=== PATIENT | male | born 1970 | race Caucasian/White ===

== ENCOUNTER 2025-02-07 03:28 | Inpatient (IN) | payer OTHER ==
[~2025-02-07] VITALS: Ht 177.8 cm; Wt 68.0 kg
--- NOTE | 2025-02-07 03:41 | ED.PDOC ---
History of Present Illness HPI Comments 54 year old male presents to the ED via EMS with a chief complaint of back pain onset 2 days. Patient has a PMHx of colon cancer, rectal cancer, has colostomy bag in place. Per EMS, patient has a low back fracture, was discharged from [facility] recently, pain has worsen. He currently rates back pain 10/10. Denies chest pain, shortness of breath, fever, chills, nausea, vomiting, diarrhea, headache, dizziness. No other symptoms or modifying factors present at this time. Time Seen by MD: 03:35 Reviewed Notes: Medications, Allergies Allergies: Coded Allergies: NO KNOWN ALLERGIES (Unverified , 02/07/25) Information Source: Patient, Emergency Med Personnel Mode of Arrival: EMS Severity: Moderate Timing: Days Duration: Since onset Prehospital treatment: None Past Medical History PAST MEDICAL HISTORY: Cancer Surgical History: Unknown Family History Family History: Reviewed,noncontributory to illness, No family hx of Cancer, No family hx of DM, No family hx of Heart sarah, No family hx of HTN, No family hx ofKidney sarah, No family hx of Liver sarah, No family hx of Lung sarah, No family hx of Stroke Social History Smoker: Non-Smoker Alcohol: Denies ETOH Use Drugs: Denies Drug Use Lives In: Home Constitutional: denies: chills, diaphoresis, fatigue, fever, malaise, sweats, weakness, others EENTM: denies: blurred vision, double vision, ear bleeding, ear discharge, ear drainage, ear pain, ear ringing, eye pain, eye redness, hearing loss, mouth pain, mouth swelling, nasal discharge, nose bleeding, nose congestion, nose pain, photophobia, tearing, throat pain, throat swelling, voice changes, others Respiratory: denies: cough, hemoptysis, orthopnea, SOB at rest, shortness of breath, SOB with excertion, stridor, wheezing, others Cardiovascular: denies: chest pain, dizzy spells, diaphoresis, Dyspnea on exertion, edema, irregular heart beat, left arm pain, lightheadedness, palpitations, PND, syncope, others Gastrointestinal: denies: abdomen distended, abdominal pain, blood streaked bowels, constipated, diarrhea, dysphagia, difficulty swallowing, hematemesis, melena, nausea, poor appetite, poor fluid intake, rectal bleeding, rectal pain, vomiting, others Genitourinary: denies: burning, dysuria, flank pain, frequency, hematuria, incontinence, penile discharge, penile sore, pain, testicle pain, testicle swelling, urgency, others Neurological: denies: dizziness, fainting, headache, left sided numbness, left sided weakness, numbness, paresthesia, pre-existing deficit, right sided numbness, right sided weakness, seizure, speech problems, tingling, tremors, weakness, others Musculoskeletal: reports: back pain; denies: gout, joint pain, joint swelling, muscle pain, muscle stiffness, neck pain, others Integumetry: denies: bruises, change in color, change in hair/nails, dryness, laceration, lesions, lumps, rash, wounds, others Allergic/Immunocompromised: denies: Difficulty Healing, Frequent Infections, Hives, Itching, others Hematologic/Lymphatic: denies: anemia, blood clots, easy bleeding, easy bruising, swollen glands, others Endocrine: denies: excessive hunger, excessive sweating, excessive thirst, excessive urination, flushing, intolerance to cold, intolerance to heat, unexplained weight gain, unexplained weight loss, others Psychiatric: denies: anxiety, bipolar disorder, depression, hopeless, panic disorder, schizophrenia, sleepless, suicidal, others All Other Systems: Reviewed and Negative Physical Exam General Appearance: Normal HEENT: Normal ENT Inspection, Pharynx Normal, TMs Normal Neck: Full Range of Motion, Non-Tender, Normal, Normal Inspection Respiratory: Chest Non-Tender, Lungs Clear, No Accessory Muscle Use, No Respiratory Distress, Normal Breath Sounds Cardiovascular: No Edema, No JVD, No Murmur, No Gallop, Normal Peripheral Pulses, Regular Rate/Rhythm Breast Exam: Deferred Gastrointestinal: No Organomegaly, Non Tender, No Pulsatile Mass, Normal Bowel Sounds, Soft Genitalia: Deferred Pelvic: Deferred Rectal: Deferred Extremities: No calf tenderness, Normal capillary refill, Normal inspection, Normal range of motion, Non-tender, No pedal edema Musculoskeletal : Apperance: Normal Neurologic: Alert, 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 Was a procedure done?: No Differential Dx Considerations may include: Differential diagnosis includes but not limited to dehydration, sepsis, peritonitis, bowel obstruction, bony metastases and others X-Ray, Labs, Meds, VS Vital Signs Date Time Temp Pulse Resp B/P (MAP) Pulse Ox O2 Delivery O2 Flow Rate FiO2 02/07/25 05:19 79 16 96 Room Air* 0 21 21 02/07/25 04:14 79 19 162/78 02/07/25 04:00 79 19 162/78 (106) 95 02/07/25 03:30 98.9 81 16 172/82 99 98.9 Lab Test 02/07/25 03:56 Range/Units White Blood Count 14.7 H 4.4-10.8 10^3/uL Red Blood Count 4.14 L 4.5-5.90 10^6/uL Hemoglobin 11.0 L 13.5-17.5 g/dL Hematocrit 33.6 L 41.0-53.0 % Mean Corpuscular Volume 81.2 80.0-100.0 fL Mean Corpuscular Hemoglobin 26.7 L 28.0-32.0 pg Mean Corpuscular Hemoglobin Concent 32.9 32.0-36.0 g/dL Red Cell Distribution Width 17.0 H 11.8-14.3 % Platelet Count 385 140-450 10^3/uL Mean Platelet Volume 6.1 L 6.9-10.8 fL Neutrophils (%) (Auto) 81.5 H 37.0-80.0 % Lymphocytes (%) (Auto) 11.5 10.0-50.0 % Monocytes (%) (Auto) 5.0 0.0-12.0 % Eosinophils (%) (Auto) 1.4 0.0-7.0 % Basophils (%) (Auto) 0.6 0.0-2.0 % Neutrophils # (Auto) 12.0 H 1.6-8.6 10 ^3/uL Lymphocytes # (Auto) 1.7 0.4-5.4 10 ^3/uL Monocytes # (Auto) 0.7 0-1.3 10 ^3/uL Eosinophils # (Auto) 0.2 0-0.8 10 ^3/uL Basophils # (Auto) 0.1 0-0.2 10 ^3/uL Nucleated Red Blood Cells 0.0 % Prothrombin Time 11.5 9.3-11.8 sec Prothrombin Time INR 1.09 0.9-1.15 Activated Partial Thromboplast Time 28.5 24.5-34.5 SEC Sodium Level 135 L 136-145 mmol/L Potassium Level 2.9 L 3.5-5.1 mmol/L Chloride Level 98 98-107 mmol/L Carbon Dioxide Level 25 20-31 mmol/L Anion Gap 12 5-15 Blood Urea Nitrogen 16 9-23 mg/dL Creatinine 0.64 L 0.700-1.30 mg/dL Glomerular Filtration Rate Calc 111 >90 mL/min BUN/Creatinine Ratio 25.0 H 10.0-20.0 Serum Glucose 106 74-106 mg/dL Calcium Level 9.6 8.7-10.4 mg/dL Total Bilirubin 0.7 0.2-1.0 mg/dL Aspartate Amino Transferase (AST) 84 H 13-40 U/L Alanine Aminotransferase (ALT) 41 H 7-40 U/L Alkaline Phosphatase 733 H 46-116 U/L Total Protein 6.5 5.7-8.2 g/dL Albumin 3.9 3.2-4.8 g/dL Lipase 66 H 12-53 U/L Current Medications Medications (Trade) Dose Ordered Sig/Ramírez Route Start Time Stop Time Status Last Admin Ondansetron HCl (Zofran) 4 mg ONCE ONCE IV 02/07/25 03:45 02/07/25 03:46 DC 02/07/25 04:13 Hydromorphone HCl (Dilaudid Injection) 1 mg ONCE ONCE IV 02/07/25 03:45 02/07/25 03:46 DC 02/07/25 04:14 Sodium Chloride 1,000 ml @ 1,000 mls/hr Q1H ONCE IVB 02/07/25 03:45 02/07/25 04:44 DC 02/07/25 04:14 Time of 1ST Reevaluation: 04:05 Reevaluation 1ST: Unchanged Patient Education/Counseling: Diagnosis, Treatment, Prognosis Family Education/Counseling: No Family Present SEPSIS Sepsis Screen Physician Orders Urinalysis (02/07/25 03:38) Ct Ab Pel With Iv Con Only (02/07/25 03:38) Chest Xray 1 View (02/07/25 03:38) Potassium Er Tablet (Klor-Con Tablet) (02/07/25 06:15) Vital Signs Date Time Temp Pulse Resp B/P (MAP) Pulse Ox O2 Delivery O2 Flow Rate FiO2 02/07/25 05:19 79 16 96 Room Air* 0 21 21 02/07/25 04:14 79 19 162/78 02/07/25 04:00 79 19 162/78 (106) 95 02/07/25 03:30 98.9 81 16 172/82 99 98.9 Laboratory Tests Test 02/07/25 03:56 White Blood Count 14.7 10^3/uL (4.4-10.8) H Medications Medications Dose Ordered Sig/Ramírez Route Start Time Stop Time Status Last Admin Dose Admin Hydromorphone HCl 1 mg ONCE ONCE IV 02/07/25 03:45 02/07/25 03:46 DC 02/07/25 04:14 Ondansetron HCl 4 mg ONCE ONCE IV 02/07/25 03:45 02/07/25 03:46 DC 02/07/25 04:13 Sodium Chloride 1,000 ml @ 1,000 mls/hr Q1H ONCE IVB 02/07/25 03:45 02/07/25 04:44 DC 02/07/25 04:14 Departure 1 Departure Time of Disposition: 06:05 Impression: Primary Impression: Colon cancer metastasized to liver Additional Impression: Intractable back pain Disposition: ADMITTED INPATIENT Condition: Guarded Discharged With: Self Comments Patient with colon cancer with metastases now presents with severe back pain. Lab results reviewed. White blood cell count elevated at 14.7. Mild anemia with a H&H of 11 and 33. Hypokalemia 2.9. Patient was given IV fluids and IV pain medication. Patient was given potassium replacement orally. CT of the abdomen and pelvis results are pending. Patient will need to be admitted for pain control and supportive care and further workup of his colon cancer Critical Care Note Critical Care Time?: No Stability Stability form required: No I personally scribed for MERRY LA MD ([email or web address]) on 02/07/25 at 03:41. Electronically submitted by Jodi Rudolph ([email or web address]). MERRY LA MD Feb 07, 2025 03:41
[2025-02-07 04:11] LABS: Hematocrit 33.6 % (41.0-53.0); Hemoglobin 11.0 g/dL (13.5-17.5); Mean Corpuscular Hemoglobin 26.7 pg (28.0-32.0); Mean Corpuscular Volume 81.2 fL (80.0-100.0); Nucleated Red Blood Cells % 0.0 %
[2025-02-07] MEDS: ONDANSETRON HCL 4 MG/2 ML VIAL IV ONE ×2 (04:13→09:30)
[2025-02-07] MEDS: SODIUM CHLORIDE 0.9% 1,000 ML IVB ONE (04:14)
[2025-02-07] MEDS: HYDROmorphone HCL 2 MG/ML VL/or syr IV ONE ×2 (04:14→09:30)
[2025-02-07 04:24] LABS: Albumin 3.9 g/dL (3.2-4.8); Anion Gap 12 (5-15); BUN/Creatinine Ratio 25.0 (10.0-20.0); Blood Urea Nitrogen 16 mg/dL (9-23); Calcium 9.6 mg/dL (8.7-10.4); Carbon Dioxide 25 mmol/L (20-31); Chloride 98 mmol/L (98-107); Glucose 106 mg/dL (74-106); Total Protein 6.5 g/dL (5.7-8.2)
[2025-02-07 04:25] LABS: Alanine Aminotransferase 41 U/L (7-40); Alkaline Phosphatase 733 U/L (46-116); Bilirubin, Total 0.7 mg/dL (0.2-1.0); Lipase 66 U/L (12-53); Potassium 2.9 mmol/L (3.5-5.1); Sodium 135 mmol/L (136-145)
[2025-02-07 04:31] LABS: INR 1.09 (0.9-1.15); Partial Thromboplastin Time 28.5 SEC (24.5-34.5); Prothrombin Time 11.5 sec (9.3-11.8)
[2025-02-07] MEDS: IOHEXOL 300 MG/ML 100ML BOTTLE IJ ONE (05:08)
[2025-02-07 05:19] VITALS: PULSE 79; RESP 16; O2SAT 96
[2025-02-07] MEDS: PIPERACILLIN-TAZOB 3.375GM 100 ML IV ONE (06:13)
[2025-02-07] MEDS: POTASSIUM CHL 20 Meq TABLET PO ONE ×2 (06:14→10:01)
--- NOTE | 2025-02-07 06:22 | DVH ---
CHEST RADIOGRAPH Indication: SOB Technique: Single frontal view of the chest was obtained COMPARISON: None FINDINGS: Lines and Tubes: Right MediPort tip projects over the cavoatrial junction. Lungs: Clear Pleura: No effusion. No pneumothorax. Cardiomediastinal contours: Unremarkable Bones: Unremarkable IMPRESSION: 1. No acute disease. 2. Right MediPort.
[2025-02-07 07:14] LABS: Urine Protein, UAD Negative (Negative)
--- NOTE | 2025-02-07 07:21 | DVH ---
Exam: CT abdomen and pelvis with contrast History: pain, h/o colon cancer with mets COMPARISON: None Technique: Multidetector spiral CT of the abdomen and pelvis was performed from lung bases to pubic s ymphysis. Intravenous contrast was administered during this examination. Portal venous imaging was o btained. Axial, coronal and sagittal multiplanar reformats were performed by the technologist on a [employer] workstation. Radiation Dose : 1. Abdomen/Pelvis: CTDIvol 12.23 mGy, DLP 687.97 mGy*cm. CONTRAST: Type of contrast: Omnipaque 300 Contrast injected: 100 ml Findings: Lung Bases: Moderate right and small left pleural effusions with adjacent atelectasis. Normal heart size. No pericardial effusion. Liver: The liver is enlarged, measuring 26.4 cm. Innumerable hypoattenuating lesions throughout the l iver consistent with diffuse disseminated metastatic disease. Gallbladder and Biliary Tree: Unremarkable Spleen: Unremarkable Pancreas: The pancreas is normal in appearance without focal lesions or abnormal enhancement. Adrenal Glands: Unremarkable Kidneys: No nephrolithiasis or hydronephrosis. Right interpolar renal cortical cyst measures 1.3 cm . Bladder: Unremarkable Bowel: The stomach is grossly normal in appearance. Left lower quadrant loop colostomy. Diverticulosi s coli without CT evidence of acute diverticulitis. Moderately irregular soft tissue density and wall thickening of the rectum and left paramedian cystic focus within the mesorectal space measures 3.6 x 2.9 cm. The appendix is not visualized; however, no secondary findings of acute appendicitis identif ied. Ascites: Trace abdominopelvic ascites. Lymphadenopathy: Pathologically enlarged gastrosplenic, pancreaticoduodenal and micki hepatis nodes, consistent with metastatic disease. Vasculature: The visualized abdominal aorta is normal in size and caliber. Atherosclerotic vascular c alcifications. Abdominal and pelvic vessels demonstrate normal enhancement. Pelvic Organs: Unremarkable Musculoskeletal: Pathologic fracture within the L3 vertebral body in association with left paramedian destructive lytic lesion resulting in approximately 25% height loss. IMPRESSION: 1. Moderate right and small left pleural effusions with adjacent atelectasis. 2. Hepatomegaly and diffuse hepatic metastatic disease. Unknown primary malignancy. 3. Peritoneal, mesenteric and retroperitoneal lymphadenopathy, consistent with metastatic disease. 4. Left paramedian L3 pathologic fracture resulting in approximately 25% height loss with underlying destructive lytic lesion consistent with osseous metastatic disease. 5. Irregular soft tissue density and wall thickening of the rectum associated with left paramedian me socolic cystic focus. 6. Left lower quadrant loop colostomy. 7. Trace abdominopelvic ascites. 8. Diverticulosis coli without CT evidence of acute diverticulitis. Radiation optimization: All CT scans at this facility use at least one of these dose optimization giovanna hniques: automated exposure control mA and/or kV adjustment per patient size (includes targeted exam s where dose is matched to clinical indication) or iterative reconstruction.
[2025-02-07 07:33] LABS: Lactic Acid w/Reflex 2.2 mmol/L (0.4-2.0)
[2025-02-07 07:55] VITALS: PULSE 77; RESP 13; O2SAT 98
[2025-02-07] MEDS ORDERED: NITROGLYCERIN 0.4 MG SL TAB SL PRN (09:45)
[2025-02-07] MEDS ORDERED: HYDROcodone-ACET 5/325MG TAB PO PRN (09:45)
[2025-02-07] MEDS ORDERED: MORPHINE SULFATE INJ 2 MG/ml SYRG IV PRN (09:45)
[2025-02-07] MEDS ORDERED: DOCUSATE SOD 100 MG CAP PO PRN (09:45)
[2025-02-07] MEDS ORDERED: ACETAMINOPHEN 325 MG TAB PO PRN (09:45)
[2025-02-07] MEDS: SODIUM CHLORIDE 0.9% 1,000 ML IV ONE (09:59)
--- NOTE | 2025-02-07 10:52 | DVHHP2 ---
History of Present Illness Reason for Visit: Back pain History of Present Illness Jr. Fady Bolivar Storey is a 54-year-old male with past medical history of colorectal cancer with metastasis to liver, and now spine, who came to the hospital due to severe back pain. Patient was recently diagnosed with colorectal cancer the beginning of this year. He had surgery with a colostomy placement in November 2024, and was told the cancer had metastasized to his liver December 2024. Patient has had his surgery and liver biopsy completed at [facility]. Last Wednesday he was admitted to [facility] due to back pain and was told he has a fracture, possibly metastasis to the bone. Patient is followed by oncology up here. He has a phone appointment today to discus the new findings and discus options. The and patient will be asking about hospice. Heme/Onc: Cancer (colorectal cancer with metastasis to liver, and now spine) Past Surgical History: Other (Colorectal cancer surgery with colostomy placement) Smoke: No ALCOHOL: none Drugs: None Lives: with Family Domestic Violence: Neg Review of Systems Constitutional: No: Fever, Chills, Sweats, Weakness, Malaise, Other Eyes: No: Pain, Vision change, Conjunctivae inflammation, Eyelid inflammation, Other, Redness ENT: No: Ear pain, Ear discharge, Nose pain, Nose discharge, Nose congestion, Mouth pain, Mouth swelling, Throat pain, Throat swelling, Other Respiratory: No: Cough, Dry, Shortness of breath, SOB with excertion, Wheezing, Hemoptysis, Pleuritic Pain, Sputum, Wheezing, Other Cardiovascular: No: Chest Pain, Palpitations, Orthopnea, Paroxysmal Noc. Dyspnea, Edema, Lt Headedness, Other Gastrointestinal: No: Nausea, Vomiting, Abdominal Pain, Diarrhea, Constipation, Melena, Hematochezia, Other Genitourinary: No Dysuria, No Frequency, No Incontinence, No Hematuria, No Retention, No Other Musculoskeletal: back pain; No: other, neck pain, shoulder pain, arm pain, hand pain, leg pain, foot pain Skin: No: Rash, Lesions, Jaundice, Bruising, Other Neurological: No: Weakness, Numbness, Incoordination, Change in speech, Confusion, Seizures, Other Allergies: Coded Allergies: NO KNOWN ALLERGIES (Unverified , 02/07/25) Exam Vital Signs Vital Signs Date Time Temp Pulse Resp B/P (MAP) Pulse Ox O2 Delivery O2 Flow Rate FiO2 02/07/25 09:30 72 16 151/76 02/07/25 09:00 96 02/07/25 07:55 Nasal Cannula* 2 28 02/07/25 07:55 98.6 98.6 General Appearance: Alert, Oriented X3, Cooperative, moderate distress HEENT: Atraumatic, PERRLA Respiratory: Clear to auscultation, Normal air movement Cardiovascular: Regular rate, Normal S1, Normal S2 Abdominal: Normal bowel sounds, Soft, No tenderness Extremities: No clubbing, No cyanosis, Normal pulses, No tenderness/swelling, Other (Mild edema to lower extremities) Skin: No rashes, No breakdown, No significant lesion Neuro: Normal gait, Normal speech, Strength at 5/5 X4 ext Psych/Mental Status: Mental status NL, Mood NL Labs/Xrays Labs Test 02/07/25 08:44 02/07/25 06:30 02/07/25 03:56 Range/Units Potassium Level 3.3 L 3.5-5.1 mmol/L Lactic Acid Level 2.1 *H 0.4-2.0 mmol/L Urine Color Light-yellow Yellow Urine Clarity Clear Clear Urine pH 6.0 5.0-9.0 Urine Specific [place] 1.016 1.001-1.035 Urine Protein Negative Negative Urine Ketones Negative Negative Urine Blood Negative Negative /uL Urine Nitrite Negative Negative Urine Bilirubin Negative Negative Urine Urobilinogen Normal Negative mg/dL Urine Leukocyte Esterase Negative Negative /uL Urine RBC <1 0 - 3 /hpf Urine Microscopic WBC 1 0-3 /HPF Urine Squamous Epithelial Cells Few <5 /hpf Urine Bacteria None seen None Seen /hpf Urine Glucose Normal Normal mg/dL White Blood Count 14.7 H 4.4-10.8 10^3/uL Red Blood Count 4.14 L 4.5-5.90 10^6/uL Hemoglobin 11.0 L 13.5-17.5 g/dL Hematocrit 33.6 L 41.0-53.0 % Mean Corpuscular Volume 81.2 80.0-100.0 fL Mean Corpuscular Hemoglobin 26.7 L 28.0-32.0 pg Mean Corpuscular Hemoglobin Concent 32.9 32.0-36.0 g/dL Red Cell Distribution Width 17.0 H 11.8-14.3 % Platelet Count 385 140-450 10^3/uL Mean Platelet Volume 6.1 L 6.9-10.8 fL Neutrophils (%) (Auto) 81.5 H 37.0-80.0 % Lymphocytes (%) (Auto) 11.5 10.0-50.0 % Monocytes (%) (Auto) 5.0 0.0-12.0 % Eosinophils (%) (Auto) 1.4 0.0-7.0 % Basophils (%) (Auto) 0.6 0.0-2.0 % Neutrophils # (Auto) 12.0 H 1.6-8.6 10 ^3/uL Lymphocytes # (Auto) 1.7 0.4-5.4 10 ^3/uL Monocytes # (Auto) 0.7 0-1.3 10 ^3/uL Eosinophils # (Auto) 0.2 0-0.8 10 ^3/uL Basophils # (Auto) 0.1 0-0.2 10 ^3/uL Nucleated Red Blood Cells 0.0 % Prothrombin Time 11.5 9.3-11.8 sec Prothrombin Time INR 1.09 0.9-1.15 Activated Partial Thromboplast Time 28.5 24.5-34.5 SEC Sodium Level 135 L 136-145 mmol/L Chloride Level 98 98-107 mmol/L Carbon Dioxide Level 25 20-31 mmol/L Anion Gap 12 5-15 Blood Urea Nitrogen 16 9-23 mg/dL Creatinine 0.64 L 0.700-1.30 mg/dL Glomerular Filtration Rate Calc 111 >90 mL/min BUN/Creatinine Ratio 25.0 H 10.0-20.0 Serum Glucose 106 74-106 mg/dL Calcium Level 9.6 8.7-10.4 mg/dL Total Bilirubin 0.7 0.2-1.0 mg/dL Aspartate Amino Transferase (AST) 84 H 13-40 U/L Alanine Aminotransferase (ALT) 41 H 7-40 U/L Alkaline Phosphatase 733 H 46-116 U/L Total Protein 6.5 5.7-8.2 g/dL Albumin 3.9 3.2-4.8 g/dL Lipase 66 H 12-53 U/L Exam: CT abdomen and pelvis with contrast CONTRAST: Type of contrast: Omnipaque 300 Contrast injected: 100 ml Findings: Lung Bases: Moderate right and small left pleural effusions with adjacent atelectasis. Normal heart size. No pericardial effusion. Liver: The liver is enlarged, measuring 26.4 cm. Innumerable hypoattenuating lesions throughout the liver consistent with diffuse disseminated metastatic disease. Gallbladder and Biliary Tree: Unremarkable Spleen: Unremarkable Pancreas: The pancreas is normal in appearance without focal lesions or abnormal enhancement. Adrenal Glands: Unremarkable Kidneys: No nephrolithiasis or hydronephrosis. Right interpolar renal cortical cyst measures 1.3 cm. Bladder: Unremarkable Bowel: The stomach is grossly normal in appearance. Left lower quadrant loop colostomy. Diverticulosis coli without CT evidence of acute diverticulitis. Moderately irregular soft tissue density and wall thickening of the rectum and left paramedian cystic focus within the mesorectal space measures 3.6 x 2.9 cm. The appendix is not visualized; however, no secondary findings of acute appendicitis identified. Ascites: Trace abdominopelvic ascites. Lymphadenopathy: Pathologically enlarged gastrosplenic, pancreaticoduodenal and micki hepatis nodes, consistent with metastatic disease. Vasculature: The visualized abdominal aorta is normal in size and caliber. Atherosclerotic vascular calcifications. Abdominal and pelvic vessels demonstrate normal enhancement. Pelvic Organs: Unremarkable Musculoskeletal: Pathologic fracture within the L3 vertebral body in association with left paramedian destructive lytic lesion resulting in approximately 25% height loss. IMPRESSION: 1. Moderate right and small left pleural effusions with adjacent atelectasis. 2. Hepatomegaly and diffuse hepatic metastatic disease. Unknown primary malignancy. 3. Peritoneal, mesenteric and retroperitoneal lymphadenopathy, consistent with metastatic disease. 4. Left paramedian L3 pathologic fracture resulting in approximately 25% height loss with underlying destructive lytic lesion consistent with osseous metastatic disease. 5. Irregular soft tissue density and wall thickening of the rectum associated with left paramedian mesocolic cystic focus. 6. Left lower quadrant loop colostomy. 7. Trace abdominopelvic ascites. 8. Diverticulosis coli without CT evidence of acute diverticulitis. CHEST RADIOGRAPH FINDINGS: Lines and Tubes: Right MediPort tip projects over the cavoatrial junction. Lungs: Clear Pleura: No effusion. No pneumothorax. Cardiomediastinal contours: Unremarkable Bones: Unremarkable IMPRESSION: 1. No acute disease. 2. Right MediPort. SEPSIS Sepsis Screen Date sepsis recognized/suspect: Feb 07, 2025 Time Sepsis recognized/suspect: 0730 Recent Procedure: No On Antibiotic Therapy: No Respiratory Rate >20: No Heart Rate >90: No Temp<36 C (96.8 F) or >38.3 C: No SBP <90 or MAP <65 mmHG: No New Acute Mental Status Change: No Is the patient on CPAP, BIPAP,: No Physician Orders Ct Ab Pel With Iv Con Only (02/07/25 03:38) Chest Xray 1 View (02/07/25 03:38) Blood Culture (02/07/25 06:03) Admit (02/07/25 09:39) Code Status (02/07/25 09:39) Hydrocodone-Acet 5/325mg Tab (Shushan 5/32 (02/07/25 09:45) Ondansetron Hcl (Zofran) (02/07/25 09:45) Docusate Sodium Capsule (Colace Capsule) (02/07/25 09:45) Fall Risk Precautions In Place QSHIFT (02/07/25 09:39) Complete Blood Count (02/08/25 04:00) Comprehensive Metabolic Panel (02/08/25 04:00) Pt Request For Service (02/07/25 09:39) Condition: Serious (02/07/25 09:39) Acetaminophen Tablet (Tylenol Tablet) (02/07/25 09:45) Nitroglycerin Sublingual (Ntrostat Subli (02/07/25 09:45) Morphine Sulfate Injection (02/07/25 09:45) Stat Ekg For Chest Pain (02/07/25 09:39) Notify Md Of Changes From Base (02/07/25 09:39) Molding Cutter For 24 Hours (02/07/25:39) Emergency Dysrhythmia Protocol (02/07/25:39) Rhythm Strips Once Every Shift (02/07/25 09:39) Oxygen By Nasal Cannula (02/07/25:39) Ceftriaxone Ivpb Rocephin (02/08/25 09:00) NS (02/07/25 09:45) Potassium Er Tablet (Klor-Con Tablet) (02/07/25 09:45) Potassium (02/07/25 14:00) Magnesium (02/07/25 14:00) Regular Diet (02/07/25 Lunch) Vital Signs Date Time Temp Pulse Resp B/P (MAP) Pulse Ox O2 Delivery O2 Flow Rate FiO2 02/07/25 09:30 72 16 151/76 02/07/25 09:00 77 20 157/77 (103) 96 02/07/25 07:55 77 13 98 Nasal Cannula* 2 28 02/07/25 07:55 98.6 77 13 149/75 (99) 98 98.6 02/07/25 07:37 77 13 149/75 02/07/25 05:19 79 16 96 Room Air* 0 21 21 02/07/25 04:14 79 19 162/78 02/07/25 04:00 79 19 162/78 (106) 95 02/07/25 03:30 98.9 81 16 172/82 99 98.9 Laboratory Tests Test 02/07/25 03:56 02/07/25 06:45 02/07/25 08:44 White Blood Count 14.7 10^3/uL (4.4-10.8) H Lactic Acid Level 2.2 mmol/L (0.4-2.0) *H 2.1 mmol/L (0.4-2.0) *H Medications Medications Dose Ordered Sig/Ramírez Route Start Time Stop Time Status Last Admin Dose Admin Hydromorphone HCl 1 mg ONCE ONCE IV 02/07/25 03:45 02/07/25 03:46 DC 02/07/25 04:14 1 MG Hydromorphone HCl 1 mg ONCE ONCE IV 02/07/25 09:30 02/07/25 09:31 DC 02/07/25 09:30 1 MG Ondansetron HCl 4 mg ONCE ONCE IV 02/07/25 03:45 02/07/25 03:46 DC 02/07/25 04:13 4 MG Ondansetron HCl 4 mg ONCE ONCE IV 02/07/25 09:30 02/07/25 09:31 DC 02/07/25 09:30 4 MG Piperacillin Sod/ Tazobactam Sod 100 ml @ 100 mls/hr ONCE ONCE IV 02/07/25 06:15 02/07/25 07:14 DC 02/07/25 06:13 100 MLS/HR Potassium Chloride 40 meq ONCE ONCE PO 02/07/25 06:15 02/07/25 06:16 DC 02/07/25 06:14 40 MEQ Sodium Chloride 1,000 ml @ 1,000 mls/hr Q1H ONCE IVB 02/07/25 03:45 02/07/25 04:44 DC 02/07/25 04:14 1,000 MLS/HR Assessment/Plan Assessment/Plan Assessment: Intractable back pain, Lactic acidosis, Leukocytosis, Hypokalemia, Pleural effusion, L3 pathologic fracture, Colorectal cancer with metastasis to liver and possible spine, Plan: Admit to Tele, Social service consult, Pain management, IV antibiotics, IV hydration, Manage/Monitor electrolytes closely, Plan discussed with: Patient, Spouse My Orders Orders - DENTON RECIO Procedure Category Date Status Time Admit ADMIT 02/07/25 Transmitted 09:39 Code Status CODE 02/07/25 Transmitted 09:39 Hydrocodone-Acet PHA 02/07/25 Transmitted 5/325mg Tab (Shushan 09:45 Ondansetron Hcl [facility] 02/07/25 Transmitted (Zofran) 09:45 Docusate Sodium PHA 02/07/25 Transmitted Capsule (Colace 09:45 Fall Risk Precautions [facility] 02/07/[address] 09:39 Complete Blood Count LAB 02/08/25 Verified 04:00 Comprehensive LAB 02/08/25 Verified Metabolic Panel 04:00 Pt Request For Service PT 02/07/25 Transmitted 09:39 Condition: Serious [facility] 02/07/25 In Process 09:39 Acetaminophen Tablet [facility] 02/07/25 Transmitted (Tylenol Tablet) 09:45 Nitroglycerin [facility] 02/07/25 Transmitted Sublingual (Ntrostat 09:45 Morphine Sulfate PHA 02/07/25 Transmitted Injection 09:45 Stat Ekg For Chest [facility] 02/07/25 Transmitted Pain 09:39 Notify Of Changes [facility] 02/07/25 Transmitted From Base 09:39 Molding Cutter For [facility] 02/07/25 Transmitted 24 Hours 09:39 Emergency Dysrhythmia [facility] 02/07/25 Transmitted Protocol 09:39 Rhythm Strips Once [facility] 02/07/25 Transmitted Every Shift 09:39 Oxygen By Nasal RT 02/07/25 Transmitted Cannula 09:39 Ceftriaxone Ivpb PHA 02/08/25 Transmitted Rocephin 09:00 NS PHA 02/07/25 Transmitted 09:45 Potassium Er Tablet [facility] 02/07/25 Transmitted (Klor-Con Tablet) 09:45 Potassium LAB 02/07/25 Transmitted 14:00 Magnesium LAB 8/20/25 Transmitted 14:00 Regular Diet DIET 02/07/25 Verified Lunch Date of Service: Feb 07, 2025 Billing Provider: DENTON RECIO Common Visit Codes: [id number] INP/OBS CARE (MOD) DENTON RECIO Feb 07, 2025 10:52
[2025-02-07 11:30] VITALS: BP 139/75; PULSE 86; RESP 17; TEMP 98.4; O2SAT 96
[2025-02-07] MEDS: cefTRIAXone 1GM/50ML D5W 50 ML IV SCH (11:50)
[2025-02-07] MEDS ORDERED: OXY10CRT PO (12:34)
[2025-02-07 14:35] LABS: Potassium 3.8 mmol/L (3.5-5.1)
[2025-02-07 14:41] LABS: Magnesium 1.9 mg/dL (1.6-2.6)
[2025-02-07] MEDS: HYDROmorphone HCL 2 MG/ML VL/or syr IV PRN (15:00)
[2025-02-07 17:52] VITALS: O2SAT 98
[2025-02-07] MEDS: MAGNESIUM SULFATE 1GM/100ML 100 ML IV SCH (18:25)
[2025-02-07 20:00] VITALS: PULSE 81
[2025-02-07 21:00] VITALS: BP 151/80; PULSE 80; RESP 19; TEMP 98.4; O2SAT 96
[2025-02-07] MEDS: HYDROcodone-ACET 10/325MG TAB PO PRN (21:35)
[2025-02-08] VITALS (8 sets, daily range): BP systolic 147–158; BP diastolic 81–84; PULSE 78–89; RESP 16–20; TEMP 98.1–98.6; O2SAT 97–98
[2025-02-08 08:17] LABS: Albumin 3.9 g/dL (3.2-4.8); Anion Gap 11 (5-15); BUN/Creatinine Ratio 19.6 (10.0-20.0); Bilirubin, Total 0.6 mg/dL (0.2-1.0); Blood Urea Nitrogen 11 mg/dL (9-23); Calcium 9.5 mg/dL (8.7-10.4); Carbon Dioxide 26 mmol/L (20-31); Chloride 100 mmol/L (98-107); Magnesium 2.2 mg/dL (1.6-2.6); Sodium 137 mmol/L (136-145); Total Protein 6.0 g/dL (5.7-8.2)
[2025-02-08 08:18] LABS: Hematocrit 35.2 % (41.0-53.0); Hemoglobin 11.4 g/dL (13.5-17.5); Mean Corpuscular Hemoglobin 26.4 pg (28.0-32.0); Mean Corpuscular Volume 81.8 fL (80.0-100.0); Nucleated Red Blood Cells % 0.0 %
[2025-02-08 08:25] LABS: Alanine Aminotransferase 50 U/L (7-40); Alkaline Phosphatase 748 U/L (46-116); Glucose 124 mg/dL (74-106); Potassium 3.3 mmol/L (3.5-5.1)
--- NOTE | 2025-02-08 10:18 | DVHPN2 ---
Subjective Patient continues to report having lumbar spinal back pain Reviewed: Care Plan, H&P, Labs, Medications Changes from previous H/P or p: No Changes General: Per HPI Eyes: No Pain, No Vision change, No Conjunctivae inflammation, No Eyelid inflammation, No Other, No Redness ENT: No Ear pain, No Ear discharge, No Nose pain, No Nose discharge, No Nose congestion, No Mouth pain, No Mouth swelling, No Throat pain, No Throat swelling, No Other Cardiovascular: No Chest Pain, No Palpitations, No Orthopnea, No Paroxysmal Noc. Dyspnea, No Edema, No Lt Headedness, No Other Respiratory: No Cough, No Dry, No Shortness of breath, No SOB with excertion, No Wheezing, No Hemoptysis, No Pleuritic Pain, No Sputum, No Other Gastrointestinal: No Nausea, No Vomiting, No Abdominal Pain, No Diarrhea, No Constipation, No Melena, No Hematochezia, No Other Genitourinary: No Dysuria, No Frequency, No Incontinence, No Hematuria, No Retention, No Other Musculoskeletal: No other, No neck pain, No shoulder pain, No arm pain; back pain; No hand pain, No leg pain, No foot pain Skin: No Rash, No Lesions, No Jaundice, No Bruising, No Other Objective Vitals Vital Signs Date Time Temp Pulse Resp B/P (MAP) Pulse Ox O2 Delivery O2 Flow Rate FiO2 02/08/25 09:49 75 20 140/68 02/08/25 08:00 Room Air* 0 21 02/08/25 05:00 98.6 98 98.6 Intake/Output Intake and Output 02/08/25 07:00 Intake Total 340 ml Output Total 1100 ml Balance -760 ml Intake Oral 340 ml Output Urine Total 1100 ml General Appearance: Alert, Oriented X3, Cooperative, mild distress HEENT: Atraumatic, PERRLA Lungs: Clear to auscultation, Normal air movement Cardiovascular: Normal S1, Normal S2 Abdomen: Normal bowel sounds, Soft, No tenderness, No hepatospenomegaly Musculoskeletal: Normal sensory function, Normal motor function Neuro: Normal gait, Normal speech Skin: Dry, Intact Psych/Mental Status: Mental status NL, Mood NL Medications Current Medications Medications Dose Ordered Sig/Ramírez Route Start Time Stop Time Status Last Admin Dose Admin Ondansetron HCl 4 mg Q4HP PRN IV 02/07/25 09:45 Docusate Sodium 100 mg BIDPRN PRN PO 02/07/25 09:45 Acetaminophen 650 mg Q6HP PRN PO 02/07/25 09:45 Nitroglycerin 0.4 mg Q5MINP PRN SL 02/07/25 09:45 Morphine Sulfate 2 mg Q30M PRN IV 02/07/25 09:45 Ceftriaxone Sodium 50 ml @ 100 mls/hr DAILY@09 IV 02/07/25 12:00 02/08/25 09:20 100 MLS/HR Acetaminophen/ Hydrocodone Bitart 1 tab Q4HP PRN PO 02/07/25 11:00 02/07/25 21:35 1 TAB Hydromorphone HCl 1 mg Q4HPRN PRN IV 02/07/25 11:00 02/08/25 09:19 1 MG Laboratory Results Laboratory Tests 02/08/25 06:28 Chemistry Test 02/07/25 14:11 02/08/25 06:28 Magnesium Level 1.9 mg/dL (1.6-2.6) 2.2 mg/dL (1.6-2.6) Albumin 3.9 g/dL (3.2-4.8) Calcium Level 9.5 mg/dL (8.7-10.4) Total Protein 6.0 g/dL (5.7-8.2) LFT Test 02/08/25 06:28 Alanine Aminotransferase (ALT) 50 U/L (7-40) H Alkaline Phosphatase 748 U/L (46-116) H Aspartate Amino Transferase (AST) 84 U/L (13-40) H Total Bilirubin 0.6 mg/dL (0.2-1.0) Urinalysis Test 02/07/25 06:30 Urine Color Light-yellow (Yellow) Urine Clarity Clear (Clear) Urine pH 6.0 (5.0-9.0) Urine Specific [place] 1.016 (1.001-1.035) Urine Protein Negative (Negative) Urine Ketones Negative (Negative) Urine Blood Negative /uL (Negative) Urine Nitrite Negative (Negative) Urine Bilirubin Negative (Negative) Urine Urobilinogen Normal mg/dL (Negative) Urine Leukocyte Esterase Negative /uL (Negative) Urine RBC <1 /hpf (0 - 3) Urine Microscopic WBC 1 /HPF (0-3) Urine Squamous Epithelial Cells Few /hpf (<5) Urine Bacteria None seen /hpf (None Seen) Urine Glucose Normal mg/dL (Normal) Microbiology Microbiology Date/Time Source Procedure Growth Status 02/07/25 06:45 Blood Blood Culture - Preliminary NO GROWTH AFTER 24 HOURS OF INCUBATION. Resulted Labs and/or images reviewed: Labs reviewed by me, Image(s) reviewed by me Assessment/Plan Assessment/Plan Impression: -intractable back pain -metastatic colorectal cancer -transaminitis -leukocytosis, probable sirs Plan: -long discussion made with the patient's was bedside with the patient. Both individuals are requesting hospitalist placement. Social service consultation will be placed. -continue current pain management -PUD, DVT prophylaxis -continue IV antibiotic therapy with Rocephin Total time spent with patient and family regarding advance care plannin minutes. Total time spent with patient discussing and formulating plan of care: 35 minutes. This medical document was created using an electronic medical record system with [employer] dictation system. Although this document has been carefully reviewed, there may still be some phonetic and typographical errors. These areas are purely typographical due to imperfections of the software programs, and do not reflect any compromise in the patient's medical care. Plan discussed with: Patient, Other (RN) Date of Service: Feb 08, 2025 Billing Provider: AZAM LOVE NP Common Visit Codes: [id number] INP/OBS CARE(HIGH) Secondary Visit Codes: [id number] CARE PLAN 30 MINUTES AZAM LOVE NP Feb 08, 2025 10:18
[2025-02-08] MEDS: ONDANSETRON HCL 4 MG/2 ML VIAL IV PRN (21:33)
[2025-02-09] VITALS (8 sets, daily range): BP systolic 132–156; BP diastolic 74–84; PULSE 77–91; RESP 16–19; TEMP 97.6–98.6; O2SAT 97–98
--- NOTE | 2025-02-09 10:03 | DVHPN2 ---
Subjective Patient continues to report having lumbar spinal back pain Reviewed: Care Plan, H&P, Labs, Medications Changes from previous H/P or p: No Changes General: Per HPI Eyes: No Pain, No Vision change, No Conjunctivae inflammation, No Eyelid inflammation, No Other, No Redness ENT: No Ear pain, No Ear discharge, No Nose pain, No Nose discharge, No Nose congestion, No Mouth pain, No Mouth swelling, No Throat pain, No Throat swelling, No Other Cardiovascular: No Chest Pain, No Palpitations, No Orthopnea, No Paroxysmal Noc. Dyspnea, No Edema, No Lt Headedness, No Other Respiratory: No Cough, No Dry, No Shortness of breath, No SOB with excertion, No Wheezing, No Hemoptysis, No Pleuritic Pain, No Sputum, No Other Gastrointestinal: No Nausea, No Vomiting, No Abdominal Pain, No Diarrhea, No Constipation, No Melena, No Hematochezia, No Other Genitourinary: No Dysuria, No Frequency, No Incontinence, No Hematuria, No Retention, No Other Musculoskeletal: No other, No neck pain, No shoulder pain, No arm pain; back pain; No hand pain, No leg pain, No foot pain Skin: No Rash, No Lesions, No Jaundice, No Bruising, No Other Objective Vitals Vital Signs Date Time Temp Pulse Resp B/P (MAP) Pulse Ox O2 Delivery O2 Flow Rate FiO2 02/09/25 09:00 98.6 86 18 145/76 (99) 97 98.6 02/09/25 08:00 Room Air* 0 21 Intake/Output Intake and Output 02/09/25 07:00 Intake Total 920 ml Output Total 1475 ml Balance -555 ml Intake Oral 920 ml Output Urine Total 1175 ml Stool Total 300 ml General Appearance: Alert, Oriented X3, Cooperative, mild distress HEENT: Atraumatic, PERRLA Lungs: Clear to auscultation, Normal air movement Cardiovascular: Normal S1, Normal S2 Abdomen: Normal bowel sounds, Soft, No tenderness, No hepatospenomegaly Musculoskeletal: Normal sensory function, Normal motor function Neuro: Normal gait, Normal speech Skin: Dry, Intact Psych/Mental Status: Mental status NL, Mood NL Medications Current Medications Medications Dose Ordered Sig/Ramírez Route Start Time Stop Time Status Last Admin Dose Admin Ondansetron HCl 4 mg Q4HP PRN IV 02/07/25 09:45 8/21/25 21:33 4 MG Docusate Sodium 100 mg BIDPRN PRN PO 02/07/25 09:45 Acetaminophen 650 mg Q6HP PRN PO 02/07/25 09:45 Nitroglycerin 0.4 mg Q5MINP PRN SL 02/07/25 09:45 Morphine Sulfate 2 mg Q30M PRN IV 02/07/25 09:45 Ceftriaxone Sodium 50 ml @ 100 mls/hr DAILY@09 IV 02/07/25 12:00 02/09/25 08:30 100 MLS/HR Acetaminophen/ Hydrocodone Bitart 1 tab Q4HP PRN PO 02/07/25 11:00 02/09/25 08:29 1 TAB Hydromorphone HCl 1 mg Q4HPRN PRN IV 02/07/25 11:00 02/09/25 06:29 1 MG Laboratory Results Laboratory Tests 02/08/25 06:28 Urinalysis Test 02/07/25 06:30 Urine Color Light-yellow (Yellow) Urine Clarity Clear (Clear) Urine pH 6.0 (5.0-9.0) Urine Specific [place] 1.016 (1.001-1.035) Urine Protein Negative (Negative) Urine Ketones Negative (Negative) Urine Blood Negative /uL (Negative) Urine Nitrite Negative (Negative) Urine Bilirubin Negative (Negative) Urine Urobilinogen Normal mg/dL (Negative) Urine Leukocyte Esterase Negative /uL (Negative) Urine RBC <1 /hpf (0 - 3) Urine Microscopic WBC 1 /HPF (0-3) Urine Squamous Epithelial Cells Few /hpf (<5) Urine Bacteria None seen /hpf (None Seen) Urine Glucose Normal mg/dL (Normal) Microbiology Microbiology Date/Time Source Procedure Growth Status 02/07/25 06:45 Blood Blood Culture - Preliminary NO GROWTH AFTER 48 HOURS OF INCUBATION. Resulted Labs and/or images reviewed: Labs reviewed by me, Image(s) reviewed by me Assessment/Plan Assessment/Plan Impression: -intractable back pain -metastatic colorectal cancer -transaminitis -leukocytosis, probable sirs Plan: Events: No events overnight. Pain under control. Still awaiting hospice placement. -long discussion made with the patient's was bedside with the patient. Both individuals are requesting hospitalist placement. Social service consultation will be placed. -continue current pain management -PUD, DVT prophylaxis -continue IV antibiotic therapy with Rocephin Total time spent with patient discussing and formulating plan of care: 35 minutes. This medical document was created using an electronic medical record system with [employer] dictation system. Although this document has been carefully reviewed, there may still be some phonetic and typographical errors. These areas are purely typographical due to imperfections of the software programs, and do not reflect any compromise in the patient's medical care. Plan discussed with: Patient, Other (RN) My Orders Orders - AZAM LOVE NP Procedure Category Date Status Time * [employer] CONS 02/08/25 Transmitted Consult Date of Service: Feb 09, 2025 Billing Provider: AZAM LOVE NP Common Visit Codes: [id number] INP/OBS CARE(HIGH) AZAM LOVE NP Feb 09, 2025 10:03
[2025-02-09] MEDS: SOD CHL 0.9%/ KCL 20MEQ 1,000 ML IV ONE (11:05)
[2025-02-10] VITALS (9 sets, daily range): BP systolic 134–165; BP diastolic 80–90; PULSE 75–93; RESP 16–19; TEMP 97.8–98.7; O2SAT 96–98
--- NOTE | 2025-02-10 13:31 | DVHPN2 ---
Reviewed: Care Plan, H&P, Labs, Medications Changes from previous H/P or p: No Changes General: Per HPI Eyes: No Pain, No Vision change, No Conjunctivae inflammation, No Eyelid inflammation, No Other, No Redness ENT: No Ear pain, No Ear discharge, No Nose pain, No Nose discharge, No Nose congestion, No Mouth pain, No Mouth swelling, No Throat pain, No Throat swelling, No Other Cardiovascular: No Chest Pain, No Palpitations, No Orthopnea, No Paroxysmal Noc. Dyspnea, No Edema, No Lt Headedness, No Other Respiratory: No Cough, No Dry, No Shortness of breath, No SOB with excertion, No Wheezing, No Hemoptysis, No Pleuritic Pain, No Sputum, No Other Gastrointestinal: No Nausea, No Vomiting, No Abdominal Pain, No Diarrhea, No Constipation, No Melena, No Hematochezia, No Other Genitourinary: No Dysuria, No Frequency, No Incontinence, No Hematuria, No Retention, No Other Musculoskeletal: No other, No neck pain, No shoulder pain, No arm pain; back pain; No hand pain, No leg pain, No foot pain Skin: No Rash, No Lesions, No Jaundice, No Bruising, No Other Objective Vitals Vital Signs Date Time Temp Pulse Resp B/P (MAP) Pulse Ox O2 Delivery O2 Flow Rate FiO2 02/10/25 09:35 70 18 135/68 02/10/25 09:00 97.8 98 97.8 02/10/25 08:00 Room Air* 0 21 Intake/Output Intake and Output 02/10/25 07:00 Intake Total 1275 ml Output Total 2850 ml Balance -1575 ml Intake Oral 1275 ml Output Urine Total 2150 ml Stool Total 700 ml General Appearance: Alert, Oriented X3, Cooperative, mild distress HEENT: Atraumatic, PERRLA Lungs: Clear to auscultation, Normal air movement Cardiovascular: Normal S1, Normal S2 Abdomen: Normal bowel sounds, Soft, No tenderness, No hepatospenomegaly Musculoskeletal: Normal sensory function, Normal motor function Neuro: Normal gait, Normal speech Skin: Dry, Intact Psych/Mental Status: Mental status NL, Mood NL Medications Current Medications Medications Dose Ordered Sig/Ramírez Route Start Time Stop Time Status Last Admin Dose Admin Ondansetron HCl 4 mg Q4HP PRN IV 02/07/25 09:45 02/08/25 21:33 4 MG Docusate Sodium 100 mg BIDPRN PRN PO 02/07/25 09:45 Acetaminophen 650 mg Q6HP PRN PO 02/07/25 09:45 Nitroglycerin 0.4 mg Q5MINP PRN SL 02/07/25 09:45 Morphine Sulfate 2 mg Q30M PRN IV 02/07/25 09:45 Ceftriaxone Sodium 50 ml @ 100 mls/hr DAILY@09 IV 02/07/25 12:00 02/10/25 09:05 100 MLS/HR Acetaminophen/ Hydrocodone Bitart 1 tab Q4HP PRN PO 02/07/25 11:00 02/10/25 12:08 1 TAB Hydromorphone HCl 1 mg Q4HPRN PRN IV 02/07/25 11:00 02/10/25 09:05 1 MG Laboratory Results Laboratory Tests 02/08/25 06:28 Urinalysis Test 02/07/25 06:30 Urine Color Light-yellow (Yellow) Urine Clarity Clear (Clear) Urine pH 6.0 (5.0-9.0) Urine Specific [place] 1.016 (1.001-1.035) Urine Protein Negative (Negative) Urine Ketones Negative (Negative) Urine Blood Negative /uL (Negative) Urine Nitrite Negative (Negative) Urine Bilirubin Negative (Negative) Urine Urobilinogen Normal mg/dL (Negative) Urine Leukocyte Esterase Negative /uL (Negative) Urine RBC <1 /hpf (0 - 3) Urine Microscopic WBC 1 /HPF (0-3) Urine Squamous Epithelial Cells Few /hpf (<5) Urine Bacteria None seen /hpf (None Seen) Urine Glucose Normal mg/dL (Normal) Microbiology Microbiology Date/Time Source Procedure Growth Status 02/07/25 06:45 Blood Blood Culture - Preliminary NO GROWTH AFTER 72 HOURS OF INCUBATION. Resulted Labs and/or images reviewed: Labs reviewed by me, Image(s) reviewed by me Assessment/Plan Assessment/Plan Covering for nurse practitioner Stefan Chadwick -intractable back pain -metastatic colorectal cancer -transaminitis -leukocytosis, probable sirs: Rocephin Continue current management Patient says [facility] will [facility] Plan discussed with: Patient Date of Service: Feb 10, 2025 Billing Provider: TIFFANY LOPEZ MD Common Visit Codes: [id number] INP/OBS CARE(HIGH) TIFFANY LOPEZ MD Feb 10, 2025 13:30
[2025-02-11] VITALS (7 sets, daily range): BP systolic 151–165; BP diastolic 75–89; PULSE 73–85; RESP 16–20; TEMP 97.5–98.3; O2SAT 95–100
--- NOTE | 2025-02-11 10:21 | DVHPN2 ---
Reviewed: Care Plan, H&P, Labs, Medications Changes from previous H/P or p: No Changes General: Per HPI Eyes: No Pain, No Vision change, No Conjunctivae inflammation, No Eyelid inflammation, No Other, No Redness ENT: No Ear pain, No Ear discharge, No Nose pain, No Nose discharge, No Nose congestion, No Mouth pain, No Mouth swelling, No Throat pain, No Throat swelling, No Other Cardiovascular: No Chest Pain, No Palpitations, No Orthopnea, No Paroxysmal Noc. Dyspnea, No Edema, No Lt Headedness, No Other Respiratory: No Cough, No Dry, No Shortness of breath, No SOB with excertion, No Wheezing, No Hemoptysis, No Pleuritic Pain, No Sputum, No Other Gastrointestinal: No Nausea, No Vomiting, No Abdominal Pain, No Diarrhea, No Constipation, No Melena, No Hematochezia, No Other Genitourinary: No Dysuria, No Frequency, No Incontinence, No Hematuria, No Retention, No Other Musculoskeletal: No other, No neck pain, No shoulder pain, No arm pain; back pain; No hand pain, No leg pain, No foot pain Skin: No Rash, No Lesions, No Jaundice, No Bruising, No Other Objective Vitals Vital Signs Date Time Temp Pulse Resp B/P (MAP) Pulse Ox O2 Delivery O2 Flow Rate FiO2 02/11/25 09:30 98.2 84 16 157/89 (111) 95 98.2 02/10/25 20:00 Room Air* 0 21 Intake/Output Intake and Output 02/11/25 07:00 Intake Total 1420 ml Output Total 1500 ml Balance -80 ml Intake Oral 1370 ml IV Total 50 ml Output Urine Total 1500 ml General Appearance: Alert, Oriented X3, Cooperative, mild distress HEENT: Atraumatic, PERRLA Lungs: Clear to auscultation, Normal air movement Cardiovascular: Normal S1, Normal S2 Abdomen: Normal bowel sounds, Soft, No tenderness, No hepatospenomegaly Musculoskeletal: Normal sensory function, Normal motor function Neuro: Normal gait, Normal speech Skin: Dry, Intact Psych/Mental Status: Mental status NL, Mood NL Medications Current Medications Medications Dose Ordered Sig/Ramírez Route Start Time Stop Time Status Last Admin Dose Admin Ondansetron HCl 4 mg Q4HP PRN IV 02/07/25 09:45 02/10/25 16:59 4 MG Docusate Sodium 100 mg BIDPRN PRN PO 02/07/25 09:45 Acetaminophen 650 mg Q6HP PRN PO 02/07/25 09:45 Nitroglycerin 0.4 mg Q5MINP PRN SL 02/07/25 09:45 Morphine Sulfate 2 mg Q30M PRN IV 02/07/25 09:45 Ceftriaxone Sodium 50 ml @ 100 mls/hr DAILY@09 IV 02/07/25 12:00 02/11/25 09:28 100 MLS/HR Acetaminophen/ Hydrocodone Bitart 1 tab Q4HP PRN PO 02/07/25 11:00 02/11/25 09:28 1 TAB Hydromorphone HCl 1 mg Q4HPRN PRN IV 02/07/25 11:00 02/11/25 06:03 1 MG Laboratory Results Laboratory Tests 02/08/25 06:28 Urinalysis Test 02/07/25 06:30 Urine Color Light-yellow (Yellow) Urine Clarity Clear (Clear) Urine pH 6.0 (5.0-9.0) Urine Specific [place] 1.016 (1.001-1.035) Urine Protein Negative (Negative) Urine Ketones Negative (Negative) Urine Blood Negative /uL (Negative) Urine Nitrite Negative (Negative) Urine Bilirubin Negative (Negative) Urine Urobilinogen Normal mg/dL (Negative) Urine Leukocyte Esterase Negative /uL (Negative) Urine RBC <1 /hpf (0 - 3) Urine Microscopic WBC 1 /HPF (0-3) Urine Squamous Epithelial Cells Few /hpf (<5) Urine Bacteria None seen /hpf (None Seen) Urine Glucose Normal mg/dL (Normal) Microbiology Microbiology Date/Time Source Procedure Growth Status 02/07/25 06:45 Blood Blood Culture - Preliminary NO GROWTH AFTER 72 HOURS OF INCUBATION. Resulted Labs and/or images reviewed: Labs reviewed by me, Image(s) reviewed by me Assessment/Plan Assessment/Plan Covering for nurse practitioner Stefan Chadwick -intractable back pain -metastatic colorectal cancer -transaminitis -leukocytosis, probable sirs: Rocephin Continue current management Patient says he will go [facility] Plan discussed with: Patient Date of Service: Feb 11, 2025 Billing Provider: TIFFANY LOPEZ MD Common Visit Codes: [id number] INP/OBS CARE(HIGH) TIFFANY LOPEZ MD Feb 11, 2025 10:21
[2025-02-12] VITALS (8 sets, daily range): BP systolic 151–169; BP diastolic 72–94; PULSE 81–91; RESP 16–20; TEMP 36.6; O2SAT 96–100
--- NOTE | 2025-02-12 11:26 | DVHDS2 ---
Discharge Summary Date of Admission Feb 07, 2025 at 09:39 Date of Discharge: Feb 12, 2025 Admitting Diagnosis Generalized weakness Wounds: None Labs/Diagnostic Data: Laboratory Results Test 02/08/25 06:28 02/07/25 08:44 02/07/25 06:30 02/07/25 03:56 White Blood Count 11.4 10^3/uL (4.4-10.8) Red Blood Count 4.30 10^6/uL (4.5-5.90) Hemoglobin 11.4 g/dL (13.5-17.5) Hematocrit 35.2 % (41.0-53.0) Mean Corpuscular Volume 81.8 fL (80.0-100.0) Mean Corpuscular Hemoglobin 26.4 pg (28.0-32.0) Mean Corpuscular Hemoglobin Concent 32.3 g/dL (32.0-36.0) Red Cell Distribution Width 17.8 % (11.8-14.3) Platelet Count 360 10^3/uL (140-450) Mean Platelet Volume 6.2 fL (6.9-10.8) Neutrophils (%) (Auto) 82.8 % (37.0-80.0) Lymphocytes (%) (Auto) 9.0 % (10.0-50.0) Monocytes (%) (Auto) 6.8 % (0.0-12.0) Eosinophils (%) (Auto) 1.1 % (0.0-7.0) Basophils (%) (Auto) 0.3 % (0.0-2.0) Neutrophils # (Auto) 9.5 10 ^3/uL (1.6-8.6) Lymphocytes # (Auto) 1.0 10 ^3/uL (0.4-5.4) Monocytes # (Auto) 0.8 10 ^3/uL (0-1.3) Eosinophils # (Auto) 0.1 10 ^3/uL (0-0.8) Basophils # (Auto) 0 10 ^3/uL (0-0.2) Nucleated Red Blood Cells 0.0 % Sodium Level 137 mmol/L (136-145) Potassium Level 3.3 mmol/L (3.5-5.1) Chloride Level 100 mmol/L (98-107) Carbon Dioxide Level 26 mmol/L (20-31) Anion Gap 11 (5-15) Blood Urea Nitrogen 11 mg/dL (9-23) Creatinine 0.56 mg/dL (0.700-1.30) Glomerular Filtration Rate Calc 116 mL/min (>90) BUN/Creatinine Ratio 19.6 (10.0-20.0) Serum Glucose 124 mg/dL (74-106) Calcium Level 9.5 mg/dL (8.7-10.4) Magnesium Level 2.2 mg/dL (1.6-2.6) Total Bilirubin 0.6 mg/dL (0.2-1.0) Aspartate Amino Transferase (AST) 84 U/L (13-40) Alanine Aminotransferase (ALT) 50 U/L (7-40) Alkaline Phosphatase 748 U/L (46-116) Total Protein 6.0 g/dL (5.7-8.2) Albumin 3.9 g/dL (3.2-4.8) Lactic Acid Level 2.1 mmol/L (0.4-2.0) Urine Color Light-yellow (Yellow) Urine Clarity Clear (Clear) Urine pH 6.0 (5.0-9.0) Urine Specific [place] 1.016 (1.001-1.035) Urine Protein Negative (Negative) Urine Ketones Negative (Negative) Urine Blood Negative /uL (Negative) Urine Nitrite Negative (Negative) Urine Bilirubin Negative (Negative) Urine Urobilinogen Normal mg/dL (Negative) Urine Leukocyte Esterase Negative /uL (Negative) Urine RBC <1 /hpf (0 - 3) Urine Microscopic WBC 1 /HPF (0-3) Urine Squamous Epithelial Cells Few /hpf (<5) Urine Bacteria None seen /hpf (None Seen) Urine Glucose Normal mg/dL (Normal) Prothrombin Time 11.5 sec (9.3-11.8) Prothrombin Time INR 1.09 (0.9-1.15) Activated Partial Thromboplast Time 28.5 SEC (24.5-34.5) Lipase 66 U/L (12-53) Other Laboratory Tests 02/08/25 06:28 Brief Hx & Hospital Course: 54-year-old male with metastatic colorectal cancer with Mets to the spine chronic back pain came in for generalized weakness and shortness of breaths found to have sepsis treated with Rocephin mild transaminitis. Treated with the pain medications for the back pain. Discharged home on hospice per family request. General condition poor Consults/Reason for consult None Operations or Procedures CT abdomen pelvis without contrast Condition at Discharge: Poor Final Diagnosis/Problems List -intractable back pain -metastatic colorectal cancer -transaminitis -leukocytosis, probable sirs: Rocephin Discharge Disposition: Hospice - Home Discharge Instruct/Medications Diet: Regular Activity: Light activity Follow Up/Referral: Follow up with the hospice Dr Medications: per hospice Scheduled Oxycodone Hcl (OxyCONTIN ER Tablet), 10 MG PO Q6HPRN, (Reported) 39 (Time taken for discharge summary 39 minutes) Discharge Statement: "Patient was advised to return to the ER or call 911 if any headaches, dizziness, shortness of breath, chest pain, abdominal pain, bleeding, fevers, or worsening of medical condition. Patient was counseled about treatment plan, medications, possible side effects, patientverbalized understanding. All questions were answered to the best of my ability. This discharge took greater then 30 minutes in planning, reviewing documentation, counseling the patient, and discussing with other team members." ASSESSMENT ASSESSMENT Hospital Course Marginal improvement Assessment -intractable back pain -metastatic colorectal cancer -transaminitis -leukocytosis, probable sirs: Rocephin Date of Service: Feb 12, 2025 Billing Provider: TIFFANY LOPEZ MD Common Visit Codes: [id number] DISCH DAY >30min TIFFANY LOPEZ MD Feb 12, 2025 11:26
== END 2025-02-12 17:24 | disposition hospice, home (50) | DRG 872 ==
LOC: EDBD 03:28 → ER 03:28 → OVERFLOW 09:39 → TELE-CENTR 17:10 → CENTRAL 02-08 20:40 → TELE-CENTR 02-08 21:09
PROVIDERS: ADMIT Family Medicine; ATTEND Family Medicine
DX: A41.9 Sepsis, unspecified organism (principal); J90 Pleural effusion, not elsewhere classified; E87.20 Acidosis, unspecified; C78.7 Secondary malignant neoplasm of liver and intrahepatic bile duct; C79.51 Secondary malignant neoplasm of bone; M84.48XA Pathological fracture, other site, initial encounter for fracture; C19 Malignant neoplasm of rectosigmoid junction; M54.9 Dorsalgia, unspecified; E87.6 Hypokalemia; R74.01 Elevation of levels of liver transaminase levels; G89.29 Other chronic pain; Z93.3 Colostomy status; Z85.048 Personal history of other malignant neoplasm of rectum, rectosigmoid junction, and anus
CPT/HCPCS: 36415; 71045; 74177; 80053; 81001; 83605; 83690; 83735; 84132; 85025; 85610; 85730; 87040; 96365; 97110; 97116; 97163; 97530; G0378; J2405; J2543